=== PATIENT | male | born 1965 | race Caucasian/White ===

== ENCOUNTER 2019-02-14 23:41 | Emergency (ER) | payer BC ==
[2019-02-15] MEDS ORDERED: MORPHINE 4 MG/1 ML INJ IM ONE (01:36)
--- NOTE | 2019-02-15 01:46 | Emergency Department Report ---
ED Extremity Problem HPI - General Chief complaint: Extremity Injury, Lower Stated complaint: RIGHT LEG PAIN Time Seen by Provider: 02/15/19 01:34 Source: patient Mode of arrival: Ambulatory Limitations: No Limitations - History of Present Illness Initial comments: 53-year-old male presents to the emergency room for pain and coldness to his right foot. Patient denies any numbness and tingling. Patient states he had cysts on the back of his knee and had it removed. Patient reports been taking his Percocet last dose was 8 PM. No PMH. MD Complaint: extremity pain, extremity swelling, cold extremity Onset/Timin -: days(s) Location: right, lower extremity History of Same: No Severity scale (0 -10): 10 Quality: sharp Consistency: constant Improves with: nothing Worsens with: nothing Associated Symptoms: denies other symptoms - Related Data Allergies Allergy/AdvReac Type Severity Reaction Status Date / Time No Known Allergies Allergy Verified 02/15/19 00:07 ED Review of Systems ROS: Stated complaint: RIGHT LEG PAIN Other details as noted in HPI Comment: All other systems reviewed and negative ED Past Medical Hx - Past Medical History Previous Medical History?: No - Surgical History Past Surgical History?: Yes Additional Surgical History: Tumor removal from back of knee. Hernia repair 2007. Hemrrhoid 2002 - Social History Smoking Status: Never Smoker Substance Use Type: None ED Physical Exam - General Limitations: No Limitations General appearance: alert, in no apparent distress - Head Head exam: Present: atraumatic, normocephalic - Eye Eye exam: Present: normal appearance - ENT ENT exam: Present: normal exam, mucous membranes moist - Neck Neck exam: Present: normal inspection - Expanded Lower Extremity Exam Right Knee exam: Present: tenderness, swelling Lower Leg exam: Present: full ROM, tenderness Ankle exam: Present: full ROM, tenderness, swelling Neuro vascular tendon exam: Present: no vascular compromise (palpable pulse in the right foot dorsum and pedis, bedside Doppler shows intact pulses). Absent: abnormal cap refill, extremity cold to touch, pallor, decreased fine/light touch, foot drop ED Course Vital Signs 02/15/19 01:55 Respiratory 18 Rate ED Medical Decision Making - Medical Decision Making 53-year-old male presents to the emergency room for pain and coldness to his right foot. Patient denies any numbness and tingling. Patient states he had cysts on the back of his knee and had it removed. Patient reports been taking his Percocet last dose was 8 PM. No PMH. Plan patient will be given a ambulatory order for outpatient doppler of rt leg. Patient is to continue his pain medication. Patient reports that his symptoms have improved since loosening his immobilizer. Patient has intact pulses to the right lower extremity palpable in by Doppler. Critical care attestation.: If time is entered above; I have spent that time in minutes in the direct care of this critically ill patient, excluding procedure time. ED Disposition Clinical Impression: Pain in right leg Disposition: DC-01 TO HOME OR SELFCARE Is pt being admited?: No Does the pt Need Aspirin: No Condition: Stable Additional Instructions: Please return to set the [facility] radiology department for ultrasound. To have your Doppler study done. Follow-up by your surgeon on Sunday. Referrals: PRIMARY CARE [Primary Care Provider] - 3-5 Days
[2019-02-15 02:55] VITALS: BP 128/76
== END 2019-02-15 02:55 | disposition home or self-care (01) ==
LOC: ED 23:41
DX: M79.671 Pain in right foot (principal)
CPT/HCPCS: 96372; 99281; J2270